=== PATIENT | male | born 1975 | race Caucasian/White ===

== ENCOUNTER 2017-07-21 02:59 | Emergency (ER) | payer OTHER ==
[~2017-07-21] VITALS: Ht 172.7 cm; Wt 138.5 kg
[2017-07-21 03:05] VITALS: TEMP 36.3; Ht 172.7 cm; Wt 138.5 kg
[2017-07-21] MEDS ORDERED: DOXY100C76 PO (03:21)
[2017-07-21] MEDS ORDERED: PRLSR20 PO (03:21)
[2017-07-21] MEDS ORDERED: KETOROLAC TROMETHAMINE 60 MG/2 ML VIAL IM STA (03:51)
[2017-07-21] MEDS ORDERED: OXYCODONE/ACETAMINOPHEN 5-325 TAB PO ONE (04:00)
--- NOTE | 2017-07-21 04:44 | EMERGENCY ROOM VISIT NOTE ---
History Report prepared by Jocy: Juventino Reddy Under the Supervision of: Dr. Ashley Lawrence D.O. First contact with patient: 03:20 Chief Complaint: NECK PAIN Stated Complaint: SEVERE NECK PAIN History of Present Illness The patient is a 41 year old male who presents to the Emergency Room with complaints of worsening neck pain that began 5 days ago. Patient states that the pain radiates to the top of his head. Patient denies a history of similar symptoms. He states he was seen at [facility] for similar symptoms. He states that no test or X-rays were done during that visit. He denies associated symptoms of fevers, abdominal pain, chills, flu-like symptoms, or weakness. Patient states that he fell 9 days ago. He denies hitting his head during the fall. He denies any neck pain after that fall. Pertinent past medical history includes degenerative disease of the cervical spine, hidradenitis, and skin graft. Patient states that 2 years ago he had pain and numbness in his right forearm and hand thought to be coming from the cervical spine. He states that the symptoms eventually resolved except he still has numbness in his pinky finger. Patient states that he has an abdominal hernia. He denies a history of diabetes. 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 Source of History: patient Onset: 5 days ago Position: neck Timing: worsening Associated Symptoms: No fevers, No chills, No abdominal pain, No weakness Review of Systems See HPI for pertinent positives & negatives. A total of 10 systems reviewed and were otherwise negative. Past Medical & Surgical Medical Problems: (1) Degenerative disc disease, cervical Surgical Problems: (1) History of skin graft Family History No pertinent family history. Social History Smoking Status: Never Smoker Drug Use: none Housing Status: lives with significant other Occupation Status: employed Current/Historical Medications Scheduled Doxycycline Monohydrate (Monodox), 100 MG PO BID Omeprazole (Prilosec), 20 MG PO DAILY Scheduled PRN Oxycodone Ir (Roxicodone Ir), 1-2 TAB PO Q4H PRN for Severe Pain Allergies Coded Allergies: No Known Allergies (Unverified , 07/21/17) Physical Exam Vital Signs Date Time Temp Pulse Resp B/P (MAP) Pulse Ox O2 Delivery O2 Flow Rate FiO2 07/21/17 05:36 69 16 143/91 95 Room Air 07/21/17 04:53 72 16 146/96 96 Room Air 07/21/17 03:05 36.3 74 20 160/98 94 Room Air Physical Exam HEENT: Head - normocephalic and atraumatic Pupils are equal, round, and reactive to light. Extraocular eye muscles are intact, and sclera are anicteric. Nose - moist nasal mucosa without discharge. Mouth - moist buccal mucosa. Oropharynx is nonerythematous and there is no tonsillar exudate or edema noted. Neck: Neck pain with palpitation over C2 and C3; no JVD, nuchal rigidity, cervical lymphadenopathy, or auscultated bruits. Heart: Regular rate and rhythm. There is a normal S1 and S2 with no murmurs, clicks, or gallops appreciated. Lungs: Clear to auscultation bilaterally with no wheezes, rales, or rhonchi. Abdomen: Soft, completely nontender, nondistended, with good bowel sounds. There are no palpable pulsatile masses or hepatosplenomegaly. There is no guarding, rigidity, or rebound noted. Extremities: No evidence of cyanosis, clubbing, or edema. There are easily palpable peripheral pulses. Neuro: The patient has normal strength in both upper extremities. he has good sensation in both hands. Skin: Extensive hidradenitis; warm and dry with good turgor and no rashes. Medical Decision & Procedures ER Provider Diagnostic Interpretation: Radiology results as stated below per my review and the radiologist's interpretation: CT C SPINE: No acute fracture or traumatic malalignment of the cervical spine. Radiologist: Odilon Phillips MD Medications Administered Medications (Trade) Dose Ordered Sig/Tee Route Start Time Stop Time Status Last Admin Dose Admin Ketorolac Tromethamine (Toradol Inj) 60 mg NOW STAT IM 07/21/17 03:51 07/21/17 03:53 DC 07/21/17 03:57 60 MG Oxycodone/ Acetaminophen (Percocet 5-325mg Tab) 2 tab NOW ONCE PO 07/21/17 04:00 07/21/17 04:01 DC 07/21/17 03:58 2 TAB Procedure Toradol Inj 60mg IM and Oxycodone/Acetaminophen 2 tab PO. ED Course 0342: Past medical records reviewed. The patient was evaluated in room B5. A complete history and physical exam was performed. 0351: Toradol Inj 60mg IM 0400: Oxycodone/Acetaminophen 2 tab PO. The patient went for CT of the C-spine which was unremarkable. 0533: Upon reevaluation, the patient is resting comfortably. He had full range of motion of his neck. his pain has been relieved. I discussed findings and results with him. He verbalized agreement of the treatment plan. He was discharged home. Medical Decision The patient is a 41 year old male who presents to the ED with neck pain. Differential diagnosis includes herniated cervical disc, degenerative disc disease, c-spine fracture, and cervical strain. This is a 41-year-old male patient who presents to the emergency department with decreased range of motion of the cervical spine and pain with movement. The patient denies any significant trauma to the neck. CT scan of the neck was unremarkable for any trauma or disc space narrowing. The patient had significant relief of his discomfort with the above medications. He had been seen at [facility] just 2 days ago and was prescribed Motrin and baclofen. He states that this medication was not helping his pain. He was given a prescription for OxyIR to use for the more severe pain over the next 2 days but not to be used in conjunction with the baclofen. I have also suggested that he use the Motrin and follow-up with his PCP for possible referral to spinal surgery. [place] Drug Monitoring Program Search Results: no issues identified Medication Reconcilliation Current Medication List: was personally reviewed by me Blood Pressure Screening Patient's blood pressure: Elevated blood pressure Secondary to pain. Impression Primary Impression: Cervical pain Scribe Attestation The scribe's documentation has been prepared under my direction and personally reviewed by me in its entirety. I confirm that the note above accurately reflects all work, treatment, procedures, and medical decision making performed by me. Departure Information Dispostion Home / Self-Care (ERASED) Prescriptions Oxycodone Ir (Roxicodone Ir) 5 Mg Tab 1-2 TAB PO Q4H Y for Severe Pain, #20 TAB Prov: Ashley Lawrence D.O. 07/21/17 Referrals No Doctor, Assigned (PCP) Forms HOME CARE DOCUMENTATION FORM, IMPORTANT VISIT INFORMATION, WORK / SCHOOL INSTRUCTIONS Patient Instructions ED Neck Pain No Trauma, My [facility] Additional Instructions Rest. Take oxycodone IR - 2 tabs. every 4-6 hours for next 2 days for more severe pain. Use Motrin after that. Do not take muscle relaxer with oxyIR Follow up with PCP as directed.
[2017-07-21 05:36] VITALS: BP 143/91; PULSE 69; O2SAT 95
[2017-07-21] MEDS ORDERED: OXYC1TAB3 PO (05:37)
--- NOTE | 2017-07-21 10:04 | DIAGNOSTIC IMAGING REPORT ---
CT OF THE CERVICAL SPINE WITHOUT CONTRAST CLINICAL HISTORY: acute severe pain in c-spine COMPARISON STUDY: No previous studies for comparison. TECHNIQUE: Helical axial images of the cervical spine were obtained without IV contrast. Sagittal and coronal reconstructions were viewed. A dose lowering technique was utilized adhering to the principles of ALARA. FINDINGS: There is straightening of the normal cervical lordosis. Craniocervical junction is intact. No fracture is identified. The central canal and neural foramen are suboptimally assessed by CT. There is mild to moderate multilevel disc space narrowing with osteophytosis and facet arthrosis. There is slight heterogeneity of the visualized skeletal structures without overt suspicious osseous lesion. There is no prevertebral edema. Lung apices are unremarkable. IMPRESSION: 1. No cervical spine fracture or subluxation. 2. Mild to moderate multilevel degenerative disc disease and mild multilevel facet arthrosis of the cervical spine. 3. Suboptimal evaluation of the central canal and neural foramen given CT technique. Electronically signed by: David Benavides M.D. 07/21/2017 10:03 AM Dictated Date/Time: 07/21/2017 9:59 AM
== END 2017-07-21 05:50 | disposition home or self-care (01) ==
LOC: C.EDB 03:03
DX: M54.2 Cervicalgia (principal)